=== PATIENT | female | born 1985 ===

== ENCOUNTER 2020-08-06 09:19 | Emergency (ER) | payer MEDICAID ==
[~2020-08-06] VITALS: Ht 162.6 cm; Wt 77.1 kg
[2020-08-06] MEDS ORDERED: SULF-11 PO (09:33)
--- NOTE | 2020-08-06 09:35 | NUR ---
Gave pt RX and d/c instructions, pt verbalized understanding.
== END 2020-08-06 09:44 | disposition home or self-care (01) ==
LOC: ER 09:19
DX: L02.01 Cutaneous abscess of face (principal)
CPT/HCPCS: A4663